=== PATIENT | female | born 1950 | race Caucasian/White ===

== ENCOUNTER → 2016-09-02 | Outpatient (CLI) | payer MEDICAID ==
[~2016-09-02] MED LIST: AUGMENTIN 875 M1 TAB PO; CYMBALTA PO; CYMBALTA30 MG PO; CYMBALTA60 MG PO; ERGOCALCIFER50000 IU; KCL PO; LASIX PO; LASIX40 MG PO; LOVASTATIN PO; LOVASTATIN20 MG PO; METOPROLOL PO; MIDRIN (DURADR1 CAP PO; NORFLEX100 MG PO; PERCOCET 325 MG1 TA2 PO; POTASSIUM PO; PREDNICOT20 MG PO; PREVACID PO; PREVACID30 M1 PO; SYNTHROID,LEVO50 MCG; TOPROL XL100 MG PO; TORADOL10 MG PO; XANAX PO; XANAX0.25 MG PO; ZITHROMAX Z PA250 MG PO; ZOFRAN4 MG PO
== END | disposition home or self-care (01) ==
LOC: US 14:54
DX: I87.8 Other specified disorders of veins (principal); M79.605 Pain in left leg; D68.9 Coagulation defect, unspecified

== ENCOUNTER → 2020-02-06 | Outpatient (CLI) | payer OTHER ==
[~2020-02-06] MED LIST changes: +AUGMENTIN 875-875 MG PO; +Ipratropium Brom3 ML INH; +LASIX20 MG PO; +LOPRESSOR100 M1 PO; +MEDROL DOSEPAK4 MG PO; +NEURONTIN100 MG PO; +PREDNISONE5 MG PO; +SINGULAIR10 M1 PO; +SPIRIVA18 MCG PO; +SYMB80 INH
== END | disposition home or self-care (01) ==
LOC: US 13:29
PROVIDERS: ATTEND Internal Medicine
DX: R60.0 Localized edema (principal)

== ENCOUNTER 2020-03-10 16:07 | Inpatient (IN) | payer OTHER ==
[2020-03-10] VITALS (8 sets, daily range): BP systolic 133–161; BP diastolic 69–93
[~2020-03-10] VITALS: Ht 157.4 cm; Wt 58.3 kg
[~2020-03-10 16:07] MED LIST changes: -AUGMENTIN 875-875 MG PO; -Ipratropium Brom3 ML INH; -LASIX20 MG PO; -LOPRESSOR100 M1 PO; -MEDROL DOSEPAK4 MG PO; -NEURONTIN100 MG PO; -PREDNISONE5 MG PO; -SINGULAIR10 M1 PO; -SPIRIVA18 MCG PO; -SYMB80 INH
[2020-03-10 16:48] LABS: BASO % 0.2 % (0.0-1.0); EOS # 0.1 10*3/uL (0.0-0.4); EOS % 0.4 % (1.0-4.0); HEMATOCRIT 44.8 % (37.0-47.0); LYMPH # 1.1 10*3/uL (1.3-4.4); LYMPH % 7.6 % (27.0-41.0); MEAN CELL VOLUME 103.9 fl (81.0-99.0); MEAN CORPUSCULAR HGB CONC 30.8 g/dl (33.0-37.0); MEAN PLATELET VOLUME 9.8 fl (9.6-12.3); MONO % 7.3 % (3.0-9.0); NEUT # 11.8 10*3/uL (2.3-7.9); PLATELET COUNT AUTOMATED 331 10*3/uL (130-400); RED BLOOD COUNT 4.31 10*6/uL (4.10-5.10)
[2020-03-10 16:59] LABS: ACT PARTIAL THROMBO TIME 24.3 SECONDS (20.0-32.1); INTERNATIONAL NORM RATIO 0.9 (2.0-3.5)
[2020-03-10 17:06] LABS: ALBUMIN 3.4 gm/dl (3.1-4.5); ALKALINE PHOSPHATASE 113 U/L (45-117); BUN 24 mg/dl (7-24); CHLORIDE 100 mmol/L (98-107); CREATININE 0.94 mg/dL (0.55-1.02); LIPASE 180 U/L (73-393); SGOT/AST 14 IU/L (3-35); SGPT/ALT 25 U/L (12-78); SODIUM 138 mmol/L (136-145); TOTAL PROTEIN 7.4 gm/dL (6.4-8.2)
[2020-03-10 17:16] LABS: TROPONIN I < 0.015 ng/ml (<0.045)
[2020-03-10] MEDS ORDERED: LASIX20 MG PO (17:32)
[2020-03-10] MEDS ORDERED: NEURONTIN100 MG PO (17:32)
[2020-03-10] MEDS ORDERED: LOPRESSOR100 M1 PO (17:32)
[2020-03-10] MEDS ORDERED: PREDNISONE5 MG PO (17:33)
[2020-03-10] MEDS ORDERED: SYMB80 INH (17:33)
[2020-03-10] MEDS ORDERED: SPIRIVA18 MCG PO (17:33)
[2020-03-10] MEDS ORDERED: SINGULAIR10 M1 PO (17:34)
[2020-03-10] MEDS ORDERED: Ipratropium Brom3 ML INH (17:35)
[2020-03-11] VITALS: BP 153/79
[2020-03-11 08:00] VITALS: BP 152/82
[2020-03-11 12:00] VITALS: BP 126/66
[2020-03-11 16:00] VITALS: BP 125/72
[2020-03-11 20:00] VITALS: BP 145/69
[2020-03-12] VITALS: BP 135/70
[2020-03-12 06:42] LABS: BASO % 0.1 % (0.0-1.0); LYMPH % 8.6 % (27.0-41.0); MEAN CELL VOLUME 102.1 fl (81.0-99.0); MEAN CORPUSCULAR HGB 32.7 pg (27.0-31.0); MEAN CORPUSCULAR HGB CONC 32.1 g/dl (33.0-37.0); MONO # 0.8 10*3/uL (0.1-1.0); NEUT # 10.1 10*3/uL (2.3-7.9); NEUT % 83.7 % (47.0-73.0); PLATELET COUNT AUTOMATED 330 10*3/uL (130-400); RED BLOOD COUNT 3.82 10*6/uL (4.10-5.10); RED CELL DISTRI WIDTH 13.4 % (0-14.5); WHITE BLOOD COUNT 12.1 10*3/uL (4.8-10.8)
[2020-03-12 06:54] LABS: ALBUMIN 2.8 gm/dl (3.1-4.5); ALKALINE PHOSPHATASE 90 U/L (45-117); BUN 30 mg/dl (7-24); CHLORIDE 101 mmol/L (98-107); CREATININE 1.05 mg/dL (0.55-1.02); POTASSIUM 3.8 mmol/L (3.5-5.1); SGOT/AST 13 IU/L (3-35); SGPT/ALT 20 U/L (12-78); SODIUM 139 mmol/L (136-145); TOTAL PROTEIN 6.1 gm/dL (6.4-8.2)
[2020-03-12 08:00] VITALS: BP 156/83
[2020-03-12 08:07] LABS: ABG BASE EXCESS 2.4 mmol/L (-2.0-2.0); ARTERIAL BLOOD GAS PH 7.437 (7.35-7.45)
[2020-03-12 12:00] VITALS: BP 150/71
[2020-03-12 16:00] VITALS: BP 140/83
[2020-03-12 20:00] VITALS: BP 150/69
[2020-03-13] VITALS: BP 152/77
[2020-03-13 06:37] LABS: BASO % 0.1 % (0.0-1.0); HEMATOCRIT 40.7 % (37.0-47.0); LYMPH # 1.2 10*3/uL (1.3-4.4); LYMPH % 8.3 % (27.0-41.0); MEAN CORPUSCULAR HGB 32.7 pg (27.0-31.0); MEAN CORPUSCULAR HGB CONC 31.7 g/dl (33.0-37.0); MEAN PLATELET VOLUME 10.1 fl (9.6-12.3); MONO # 1.1 10*3/uL (0.1-1.0); MONO % 7.4 % (3.0-9.0); NEUT % 83.2 % (47.0-73.0); NUCLEATED RED BLOOD CELL 0.1 % (0.0-0.0); PLATELET COUNT AUTOMATED 336 10*3/uL (130-400); RED BLOOD COUNT 3.95 10*6/uL (4.10-5.10); RED CELL DISTRI WIDTH 13.3 % (0-14.5); WHITE BLOOD COUNT 14.5 10*3/uL (4.8-10.8)
[2020-03-13 06:56] LABS: ALBUMIN 2.7 gm/dl (3.1-4.5); BUN 28 mg/dl (7-24); CHLORIDE 101 mmol/L (98-107); CREATININE 0.98 mg/dL (0.55-1.02); POTASSIUM 4.1 mmol/L (3.5-5.1); SGOT/AST 21 IU/L (3-35); SGPT/ALT 37 U/L (12-78); SODIUM 139 mmol/L (136-145)
[2020-03-13 06:58] LABS: ALKALINE PHOSPHATASE 90 U/L (45-117)
[2020-03-13 08:00] VITALS: BP 179/92
[2020-03-13 12:00] VITALS: BP 154/68
[2020-03-13 16:00] VITALS: BP 155/80
[2020-03-13 20:00] VITALS: BP 155/98
[2020-03-14] VITALS: BP 167/87
[2020-03-14 06:42] LABS: BASO % 0.1 % (0.0-1.0); HEMATOCRIT 42.2 % (37.0-47.0); LYMPH # 1.3 10*3/uL (1.3-4.4); LYMPH % 9.5 % (27.0-41.0); MEAN CELL VOLUME 103.4 fl (81.0-99.0); MEAN CORPUSCULAR HGB 33.1 pg (27.0-31.0); MEAN PLATELET VOLUME 9.9 fl (9.6-12.3); MONO # 1.4 10*3/uL (0.1-1.0); MONO % 10.1 % (3.0-9.0); NEUT % 78.9 % (47.0-73.0); NUCLEATED RED BLOOD CELL 0.1 % (0.0-0.0); PLATELET COUNT AUTOMATED 342 10*3/uL (130-400); RED BLOOD COUNT 4.08 10*6/uL (4.10-5.10); RED CELL DISTRI WIDTH 13.7 % (0-14.5)
[2020-03-14 07:00] LABS: ALBUMIN 2.8 gm/dl (3.1-4.5); ALKALINE PHOSPHATASE 91 U/L (45-117); BUN 23 mg/dl (7-24); CHLORIDE 101 mmol/L (98-107); CREATININE 0.88 mg/dL (0.55-1.02); POTASSIUM 4.2 mmol/L (3.5-5.1); SGOT/AST 18 IU/L (3-35); SGPT/ALT 37 U/L (12-78); SODIUM 139 mmol/L (136-145); TOTAL PROTEIN 6.2 gm/dL (6.4-8.2)
[2020-03-14 08:00] VITALS: BP 169/98
[2020-03-14] MEDS ORDERED: MEDROL DOSEPAK4 MG PO (11:42)
[2020-03-14] MEDS ORDERED: AUGMENTIN 875-875 MG PO (11:42)
== END 2020-03-14 12:10 | disposition home or self-care (01) | DRG 189 ==
LOC: ED 16:07 → EDHOLD 18:32 → 5E 18:32
PROVIDERS: Emergency Medicine; Internal Medicine Critical Care Medicine; ADMIT Internal Medicine; ATTEND Internal Medicine
DX: J96.20 Acute and chronic respiratory failure, unspecified whether with hypoxia or hypercapnia (principal); J44.0 Chronic obstructive pulmonary disease with (acute) lower respiratory infection; E87.3 Alkalosis; J45.51 Severe persistent asthma with (acute) exacerbation; E44.0 Moderate protein-calorie malnutrition; J44.1 Chronic obstructive pulmonary disease with (acute) exacerbation; J20.9 Acute bronchitis, unspecified; F17.210 Nicotine dependence, cigarettes, uncomplicated; I10 Essential (primary) hypertension; E03.9 Hypothyroidism, unspecified; G89.29 Other chronic pain; M54.9 Dorsalgia, unspecified; G47.33 Obstructive sleep apnea (adult) (pediatric); F41.1 Generalized anxiety disorder; K21.9 Gastro-esophageal reflux disease without esophagitis; M79.18 Myalgia, other site; K59.09 Other constipation; T38.0X5A Adverse effect of glucocorticoids and synthetic analogues, initial encounter; Y92.89 Other specified places as the place of occurrence of the external cause; Z99.81 Dependence on supplemental oxygen; Z68.23 Body mass index [BMI] 23.0-23.9, adult; Z88.2 Allergy status to sulfonamides

== ENCOUNTER 2021-04-27 16:23 | Emergency (ER) | payer OTHER ==
[~2021-04-27 16:23] MED LIST changes: +AUGMENTIN 875-875 MG PO; +Ipratropium Brom3 ML INH; +LASIX20 MG PO; +LOPRESSOR100 M1 PO; +MEDROL DOSEPAK4 MG PO; +NEURONTIN100 MG PO; +PREDNISONE5 MG PO; +SINGULAIR10 M1 PO; +SPIRIVA18 MCG PO; +SYMB80 INH
[2021-04-27 16:46] LABS: BASO % 0.4 % (0.0-1.0); EOS # 0.2 10*3/uL (0.0-0.4); EOS % 1.8 % (1.0-4.0); HEMATOCRIT 42.3 % (37.0-47.0); LYMPH # 1.3 10*3/uL (1.3-4.4); LYMPH % 12.6 % (27.0-41.0); MEAN CELL VOLUME 97.2 fl (81.0-99.0); MEAN CORPUSCULAR HGB 30.8 pg (27.0-31.0); MEAN CORPUSCULAR HGB CONC 31.7 g/dl (33.0-37.0); MEAN PLATELET VOLUME 9.6 fl (9.6-12.3); MONO % 9.1 % (3.0-9.0); NEUT % 75.5 % (47.0-73.0); PLATELET COUNT AUTOMATED 326 10*3/uL (130-400); RED BLOOD COUNT 4.35 10*6/uL (4.10-5.10); WHITE BLOOD COUNT 10.6 10*3/uL (4.8-10.8)
[2021-04-27] MEDS ORDERED: ATORVASTATIN CA40 M1 PO (16:52)
[2021-04-27] MEDS ORDERED: PANTOPRAZOLE SO40 MG PO (16:53)
[2021-04-27] MEDS ORDERED: NITROGLYCERIN0.4 MG SL (16:53)
[2021-04-27] MEDS ORDERED: LOSARTAN POTASS50 M1 PO (16:54)
[2021-04-27] MEDS ORDERED: METHOCARBAMOL750 M1 PO (16:54)
[2021-04-27] MEDS ORDERED: LOSARTAN POTASS25 M1 PO (16:55)
[2021-04-27 17:06] LABS: ACT PARTIAL THROMBO TIME 24.7 SECONDS (20.0-32.1); ALKALINE PHOSPHATASE 103 U/L (45-117); BUN 14 mg/dl (7-24); CHLORIDE 98 mmol/L (98-107); CREATININE 1.31 mg/dL (0.55-1.02); POTASSIUM 3.5 mmol/L (3.5-5.1); SGOT/AST 18 IU/L (3-35); SGPT/ALT 20 U/L (12-78); SODIUM 138 mmol/L (136-145); TOTAL PROTEIN 8.1 gm/dL (6.4-8.2)
[2021-04-27] MEDS ORDERED: VIBRAMYCIN100 MG PO (21:07)
[2021-04-27] MEDS ORDERED: PREDNISONE50 MG PO (21:07)
== END 2021-04-27 21:27 | disposition home or self-care (01) ==
LOC: ED 16:23
PROVIDERS: Emergency Medicine
DX: J44.1 Chronic obstructive pulmonary disease with (acute) exacerbation (principal); F17.200 Nicotine dependence, unspecified, uncomplicated; Z88.2 Allergy status to sulfonamides; Z79.899 Other long term (current) drug therapy; Z98.890 Other specified postprocedural states

== ENCOUNTER → 2021-05-15 | Outpatient (CLI) | payer OTHER ==
[~2021-05-15] MED LIST changes: +ATORVASTATIN CA40 M1 PO; +LOSARTAN POTASS25 M1 PO; +LOSARTAN POTASS50 M1 PO; +METHOCARBAMOL750 M1 PO; +NITROGLYCERIN0.4 MG SL; +PANTOPRAZOLE SO40 MG PO; +PREDNISONE50 MG PO; +VIBRAMYCIN100 MG PO
== END | disposition home or self-care (01) ==
LOC: US 13:00 → MRI 14:00
PROVIDERS: ATTEND Internal Medicine
DX: I65.23 Occlusion and stenosis of bilateral carotid arteries (principal); N28.1 Cyst of kidney, acquired

== ENCOUNTER → 2022-07-09 | Outpatient (CLI) | payer OTHER | END | disposition home or self-care (01) | LOC: RAD 10:30 | PROVIDERS: ATTEND Internal Medicine | DX: Z13.820 Encounter for screening for osteoporosis (principal); Z78.0 Asymptomatic menopausal state ==